=== PATIENT | male | born 1950 | race Caucasian/White ===

== ENCOUNTER 2018-01-04 14:30 | Outpatient (RCR) | payer MEDICARE, SELFPAY ==
--- NOTE | 2017-12-11 10:49 | IE_ITS ---
Date: 12/11/17 Referring: Dr. Kush Paulson Diagnosis: S/P (B) TKR 11/30/17 P.T. Diagnosis: Same SUBJECTIVE: History of Present Illness: Pt presents for rehab following (B) TKRs 11/30/17. Pt had short stay at [facility] for 3 days following his rehab. He has just returned home 2 days ago. He has been compliant with his exercises prescribed by his MD. He has been up walking around as much as he can now without his crutches. Pt reports prior hx of extensive progressive (B) knee OA for years. Pain Ratin-4 /10 on average increasing with increased activity attempt. Pain Location: (B) medial and lateral joint compartments of the knees. Prior Level of Function: Due to his extensive OA, he had poor tolerance to weightbearing activities, squatting, stair climbing and uneven terrain etc.. Current Level of Function: Even now more so limited due to acute post op condition, and inability to tolerate prolonged weightbearing activities. Struggling with ascension and dissension of stairs, significant sleep disruption and struggles to get in and out of a vehicle. He cannot drive on his own and he cannot walk long distance. He has moderate complications getting into and out of his tub, off the toilet etc.. See LEFS for specifics. Previous Treatment: [facility] x 4 days post op and no outpatient at this point. Social: He is a retired toolroom machinist and tool pusher. Comorbidities: (B) shoulder replacements and he has high blood pressure. Falls in the last year: __X__ No ____Yes - How many? ____ - (if over 2, balance SM needs to be completed) Reported hospitalizations in the last year - ____ No __X__ Yes - Dates of admission/reason: Following TKR otherwise none Medications: Tylenol PRN he has weaned himself off from his narcotics. Lisinopril. Quality of Life: __X__ Excellent Standardized Measures: LEFS score: __82% Disability__ OBJECTIVE: Posture: Unremarkable Observation: (B) LE ecchymosis more remarkable distally, LE swelling appropriate for post op condition, donning SATINDER hose below the knee. Presents with two crutches, but not utilizing them. Gait: Antalgic as expected with minimal knee mobility through all phases of gait. WBOS with short stride length, he doesn't seem to be favoring one leg over the other. He initially stands for about 10 seconds before stepping just to get his balance, before walking. He does not demonstrate good knee extension during heel strike, lacking about 10-15* B. Palpation: Is unremarkable. Edema: Present throughout (B) LEs as noted above. Girth measurements: (R) knee superior surgical incision 48cm, central knee 45 cm, 13cm below his inferior incision 37.5cm (L) knee is 48.5cm, 47cm, 40.5 cm respectively. ROM: (R) 10-103* (L) 10-105* Joint Accessory Motion: Moderately limitation with tibial femoral, hypomobile patella femoral all directions (B). Strength: 4/5 quad and hamstring, but unable to perform TKE at this point. SLR he is lacking about 10* TKE, demonstrating good quad activation with visual quad contraction. Neuro: Intact to light touch (B) LEs Balance: Poor due to post op condition, poor strength and overall swelling lack of mobility etc.. Special Tests: N/A Treatment: IE: [id number] Patient Education: HEP review: encouraging continued compliance with his current program which was appropriate. I added additional heel slides, leg elevation with ankle pumping to reduce swelling, as well as instruction in seated knee flexion activities. KX applied to all codes ____ Yes __X__ No Manual therapy: ([id number]). MLD to (B) LEs, (B) knee flexion and extension mobilizations. Nustep x 5 minutes minimally supervised. Direct treatment time: 60 minutes Total treatment time: 60 minutes ASSESSMENT: Patient is a 67 -year-old male, referred for PT services with the diagnosis of ( B) TKR. Patient presents with clinical signs and symptoms consistent with post op dx, as demonstrated by the following impairment level findings: (B) knee ROM limitations, strength deficits, lack of proprioceptive control, LE swelling and edema, ecchymosis, gait antalgia. Impairments are contributing to the following functional limitations: See current level of function and LEFS, revealing poor tolerance to weightbearing activities, sleep disruption and struggling with self care activities and unable to drive. Patient is assessed as: __X__ Low 81574 ____ Moderate 04101 ____ High 85366 complexity, based on the following: History: X See comorbidities and social history. Examination: X See above for functional limitations and impairments. Presentation: X Stable Decision-Making: X Low complexity 82 % Disability based on LEFS __X__ Patient requires skilled PT intervention to remediate the above functional limitations to return to: __X__ Return to full functional mobility Prognosis: __X__ Excellent G-Codes : Patient's primary functional limitation is in the category of: __X__ Mobility - walking and moving around : [id number] based on LEFS Projected goal: __X__ Mobility - walking and moving around: [id number] STG: __6__ weeks. 1. Minimally antalgic gait on level terrain, climbing stairs reciprocally with use of rail with mild antalgia. 2. Minimal to no sleep disruption 3. LEFS improved to 55% disability 4. Return to driving. LTG: __14__ weeks. __X__ Return to premorbid level of function. __X__ Return to full, pain-free, functional mobility. __X__ Independent with self-maintenance program. PLAN: Patient to be seen 2 x per week, for 14 weeks, adjusting frequency of visits per patient symptoms and response to treatment. Treatment to include: X Manual therapy - [id number]: For mobilization of (B) knees, MLD, soft tissue mobilizations PRN, accessory mobilizations, etc.. X Therapeutic exercise - [id number] gross LE strengthening and core stability strengthening to return to full function. X Aquatic Therapy- If he struggles for land based interventions. Pt's care will be transferred to our [facility] under the supervision of OSCAR Ybarra per his request to accommodate to his travel time. Thank you for this referral. Please do not hesitate to contact me with any questions or concerns regarding this patient's plan of care. Dr. Currie please sign below if you are in agreement with this patient's plan of care, cc: Chandra Currie, DO
--- NOTE | 2017-12-14 10:30 | PTTR_ITS ---
DATE: 12/14/17 SUBJECTIVE: Patient arrived to appointment ambulating with decreased knee flexion bilaterally and no use of AD. Patient reports he has been completing his HEP 2 times per day, using his CPM machine about 3 hours per day, and walking everyday. His incisions are both healing well with no drainage. Has follow up appointment with surgeon on ThursdayDecember 16. OBJECTIVE: Manual therapy: ([id number]). Performed grade 2 anterior tibiafemoral joint mobilizations in seated position with distraction bilaterally. Knee flexion PROM in seated position. Patellafemoral mobilizations in all directions bilaterally. Posterior tibiafemoral grade 2 joint mobilizations with tibial distraction to promote terminal knee extension. P/AAROM into knee flexion and extension. Hamstring and single knee to chest stretches bilaterally. AROM after joint mobilizations and stretching 10-110 degrees bilaterally. Patient instructed to progress CPM machine to 120 degrees of flexion. Therapeutic procedures ([id number]). [X] HEP review: Added prone hang stretch to promote total knee extension. [X] See flow sheet: Focused on bilateral knee ROM and LE strengthening. [X] Provided skilled instruction in proper exercise performance: for proper body mechanics. [X] Provided skilled manual cues to facilitate proper muscle recruitment and/or movement pattern: Cues needed to lead with heel and keep trunk in neutral position when performing standing hip abduction. Patient requires cues to bend knees and strike with heels when ambulating. Cryotherapy to bilateral knees post session x 10 minutes in supine with wedge pillow. Direct treatment time: 55 minutes Total treatment time: 65 minutes Shelly Aiken, SPT Jennie Bell, MPT
--- NOTE | 2017-12-17 15:00 | PTTR_ITS ---
DATE: December 17, 2017 SUBJECTIVE: Gregory notes that he was sore following his last treatment session. He followed up with his surgeon since he was last here and they feel that he is doing very well. He was able to get onto his [employer] [place] at home to check his [place] bushes. He notes that they said he could return to driving once he felt he had control. He has completed the prone extension stretches. He was also instructed via his PA that he could perform in seated position with use of a stool under his ankle with weights drawing the leg down into extension. He has not tried this one yet. Continues to be walking more and more. He notes that he still is not sleeping well. OBJECTIVE: Manual therapy: ([id number]).Patellofemoral joint mobilization all planes to bilateral knees. Tibiofemoral anterior glides in seated position Gr II/III bilaterally. Posterior glides in supine Gr II/III bilaterally. LE distractions provided to improved terminal knee extension. P/AAROM performed throughout all planes. Soft tissue stretching bilateral hamstring, and SKC. Post mobilization bilateral knee flexion to 110 degrees. Therapeutic procedures ([id number]). * X HEP review: Promoting knee extension stretching. Reviewed home stabilization per protocol. * X See flow sheet: Open and closed chain strength and stabilization per flow sheet. * X Provided skilled instruction in proper exercise performance: avoiding compensatory movements with focus on body mechanics and postural awareness. * X Provided skilled manual cues to facilitate proper muscle recruitment and/ or movement pattern: Ended with cryotherapy to bilateral knees for 10 minutes post with use of wedge pillow for elevation. Will continue to advance within symptom allowance progressing accordingly via protocol. Direct treatment time: 45 minutes Total treatment time: 55 minutes
--- NOTE | 2017-12-21 14:00 | PTTR_ITS ---
DATE: December 21, 2017 SUBJECTIVE: Gregory notes that he has really been working on his ROM at home. He drove himself for the first time today to his appt. He continues to be doing more and more around the house including some light vacuuming. He notes he continues to fight with his extension however does feel that he is seeing improvements. OBJECTIVE: Manual therapy: ([id number]). Patellofemoral joint mobilization all planes to bilateral knees. Tibiofemoral joint mobilization Gr II/III anterior glides in seated position and posterior glides in supine to bilateral knees. P/AAROM performed throughout all planes with focus on terminal knee extension. Soft tissue stretching to the hamstring, ITB and SKC also performed. Scar mobilization also provided. Incisions are healing well. Post mobilization right knee 10-120 degrees, left knee 5-120 degrees. Therapeutic procedures (12526d7). * X HEP review: Focusing on TKE * X See flow sheet: Open and closed chain strength and stabilization per TKR protocol. * X Provided skilled instruction in proper exercise performance: promoting body mechanics and postural awareness. * X Provided skilled manual cues to facilitate proper muscle recruitment and/ or movement pattern: Ended with cryotherapy to bilateral knees post session for 10 minutes along with wedge pillow for elevation. Direct treatment time: 60 minutes Total treatment time: 70 minutes
--- NOTE | 2017-12-24 15:11 | PTTR_ITS ---
DATE: 12/24/17 SUBJECTIVE: Vamshi states that he is still having difficulties sleeping at night. He indicates that his knees get really tired of being straight, and is unable to get comfortable. OBJECTIVE: Manual therapy: ([id number]). mobilizations of bilateral tib/fem jt including anterior and posterior glides, P /AAROM in seated and supine positions. Stretching of hamstrings, ITB and piriformis. Patella glides in all directions. LE distractions via leg pulls. He went into prone and received STM t/o posterior knee with focus on hamstrings, and gastrocs. ROM using MET's into extension along with tibial distractions. I also provided scar tissue work. Therapeutic procedures ([id number]). * x See flow sheet: for global LE strength and stabilizations. * x Provided skilled instruction in proper exercise performance: proper quad engagement. He ended with cryo to posterior and anterior aspect of knee x 10 min with elevation. Direct treatment time: 60 min Total treatment time: 70 min
--- NOTE | 2017-12-28 09:30 | PTTR_ITS ---
DATE: December 28, 2017 SUBJECTIVE: Gregory notes that he continues to be doing well. He is able to walk longer distances with less overall irritation. He feels that he is getting around his home better with less restrictions. He remains compliant with his HEP and continues to ice frequently throughout the day for swelling and pain. OBJECTIVE: Manual therapy: ([id number]).Patellofemoral joint mobilization all planes to bilateral knees. Tibiofemoral joint mobilization Gr III anterior glides in sitting and posterior glides in supine to bilateral knees. P/AAROM performed to bilateral knees with focus on end range extension mobility. Soft tissue stretching to include hamstring, ITB and SKC. This followed with scar tissue mobilization to bilateral incisions. ROM steadily improving. Therapeutic procedures ([id number]). * X See flow sheet: Open and closed chain stabilization per TKR protocol. Advanced balance acitviity per flow sheet. Encouraged engagement of the TA. * X Provided skilled instruction in proper exercise performance: promoting proper body mechanics and postural awareness * X Provided skilled manual cues to facilitate proper muscle recruitment and/ or movement pattern: promoting gait mechanics with normalized heel to toe pattern. Increased cueing utilized for the right knee with tendency to circumduct his hip vs flex his knee. Improved with cueing. Ended with cryotherapy to bilateral knees post session for 10 minutes along with wedge pillow. Direct treatment time: 60 minutes Total treatment time: 70 minutes
--- NOTE | 2017-12-31 09:30 | PTTR_ITS ---
DATE: December 31, 2017 SUBJECTIVE: Vamshi is a little discouraged today with the amount of discomfort he is having in his right knee. He continues to remain compliant with his HEP and stretches however just does not seem to get any looser. OBJECTIVE: Manual therapy: ([id number]).Patellofemoral joint mobilization all planes to bilateral knees. Tibiofemoral joint mobilization Gr II/III anterior glides in seated and posterior glides in supine. Soft tissue mobilization to the distal ITB and into the extensor mechanism bilaterally. Scar tissue mobilization then followed. P/AAROM to bilateral knees with focus on terminal knee extension. Instructed in towel stretch to bilateral knees with TKE. This seemed to provide a better stretch than the prone hangs. Will have him substitute this to promote his hamstring flexibility. Therapeutic procedures ([id number]). * X See flow sheet: Open and closed kinetic chain strength and stabilization per flow sheet. Continued to advance with use of [employer] gym for modified squats. Added resistance with hip PRE's and SSH. Continued to provide verbal and tactile cueing to ensure proper recruitment and avoidance of compensatory movement patterns. Continued verbal cues to promote proper heel to toe pattern. Ended with MHP to bilateral hamstrings with wedge pillow for elevation and cryotherapy to bilateral knees for 10 minutes. Will continue to advance within symptom allowance. Will monitor his response to the new extension stretch. Continue to encourage use of walking sticks or cane to promote improved gait mechanics. Direct treatment time: 60 minutes Total treatment time: 70 minutes
--- NOTE | 2018-01-04 14:30 | PTTR_ITS ---
DATE: January 04, 2018 SUBJECTIVE: Gregory notes that he [place] to the [place] the [place] and did quite a bit of walking with manageable symptoms. He continues to note increased soreness into the distal ITB region of the right knee. He continues to complete his daily stretches and has been working on his knee extension as much as he can tolerate. OBJECTIVE: Manual therapy: ([id number]).Patellofemoral joint mobilization all planes to bilateral knees. Tibiofemoral posterior glides in supine Gr III. Passive hamstring, ITB and SKC stretching performed bilaterally. P/AAROM performed to bilateral knees with focus on TKE. STM throughout the distal ITB region and into the extensor mechanism on the right knee. Therapeutic procedures ([id number]). * X See flow sheet: Open and closed kinetic chain strength and stabilization with continued advancement in resistance and repetitions. See flow sheet for specifics. * X Provided skilled instruction in proper exercise performance: promoting body mechanics and postural awareness. * X Provided skilled manual cues to facilitate proper muscle recruitment and/ or movement pattern: Ended with cryotherapy to bilateral knees post session along with utilization of the a wedge pillow for elevation. ROM continues to improved. Extension remains prime limiter Will continue to advance within symptom allowance progressing per protocol. Direct treatment time: 45 minutes Total treatment time: 55 minutes
--- NOTE | 2018-01-08 13:00 | PTTR_ITS ---
DATE: January 08, 2018 SUBJECTIVE: Gregory notes that he has a small pimple on his incision that popped causing some mild drainage. He reports that he put antibiotic ointment on it immediately and has been watching it for fear of infection. He continues to note improvement week by week. He remains compliant with HEP. OBJECTIVE: Upon observation of incision redness noted middle incision. No drainage is present. Will continue to monitor. Recommend he continue to monitor it as well. Feel probable internal stitch. Manual therapy: ([id number]). Patellofemoral joint mobilization all planes to bilateral knees. Tibiofemoral joint mobilization bilateral knees Gr II/III anterior glides in seated and posterior glides in supine. Soft tissue stretching to the hamstrings and SKC. Post mobilization active knee ROM 5-120 degrees bilaterally. Therapeutic procedures ([id number]). * X See flow sheet: Open and closed kinetic chain stabilization with progressive resistive training. * X Provided skilled instruction in proper exercise performance: promoting body mechanics and postural awareness. * X Provided skilled manual cues to facilitate proper muscle recruitment and/ or movement pattern: encouraging proper gait mechanics. Utilized treadmill to promote heel strike and quad set with initial contact for continued to want to keep his knees flexed. Ended with cryotherapy to bilateral knees along with wedge pillow for elevation. Continue to advance per protocol and within symptom allowance. Direct treatment time: 45 minutes Total treatment time: 55 minutes
== END 2018-01-08 23:59 | disposition home or self-care (01) ==
LOC: PT 14:30
PROVIDERS: PCP Emergency Medicine; Referring Provider Orthopaedic Surgery; Visit Provider Orthopaedic Surgery
DX: Z47.1 Aftercare following joint replacement surgery (principal); Z96.653 Presence of artificial knee joint, bilateral
CPT/HCPCS: 97110; 97140; 97161; G8978

== ENCOUNTER 2019-01-26 07:00 | Outpatient (CLI) | payer MEDICARE, SELFPAY ==
[2019-01-26 13:02] LABS: Anion Gap 11.9 mmol/L (3-11); BUN 14 mg/dL (7-18); CO2 24.1 mmol/L (21.0-32.0); Chloride 101 mmol/L (98-107); Glucose 94 mg/dL (70-100); Potassium 3.9 mmol/L (3.5-5.1); Sodium 137 mmol/L (136-145)
[2019-01-27 11:15] LABS: PSA, Screening 0.5 ng/ml (0-4.5)
== END 2019-01-26 07:20 ==
PROVIDERS: PCP Emergency Medicine; Visit Provider Emergency Medicine
DX: I10 Essential (primary) hypertension (principal); N40.0 Benign prostatic hyperplasia without lower urinary tract symptoms; Z12.5 Encounter for screening for malignant neoplasm of prostate
CPT/HCPCS: 36415; 80048; 84153

== ENCOUNTER → 2019-09-26 11:26 | Outpatient (BNVA) | payer MEDICARE, SELFPAY | PROVIDERS: PCP Emergency Medicine; Referring Provider Emergency Medicine; Visit Provider Surgery | DX: K60.2 Anal fissure, unspecified (principal) | CPT/HCPCS: 99201 ==

== ENCOUNTER 2019-11-07 01:45 | Outpatient (CLI) | payer MEDICARE, SELFPAY ==
--- NOTE | 2019-11-07 08:23 | DI.RAD_ITS ---
EXAM: XR CHEST 2V PA LATERAL CLINICAL HISTORY: fatigue confusion smoker, R53.83 TECHNIQUE: 2D digital imaging was performed. COMPARISON: No exams were available for comparison FINDINGS: MEDIASTINUM: Normal. HEART: Normal. PULMONARY VASCULATURE: Normal. LUNGS: Clear. PLEURAL SPACE: No pleural effusion or pneumothorax. BONE:Normal. OTHER FINDINGS:Bilateral shoulder replacements. IMPRESSION: No acute pulmonary findings. DATA REPOSITORY: RADIATION DOSE DELIVERED:
--- NOTE | 2019-11-07 08:32 | DI.CT_ITS ---
EXAM: CT HEAD WO CLINICAL HISTORY: fatigue and confusion, R53.83, R41.0. TECHNIQUE: Imaging Protocol: Axial computed tomography images with coronal and sagittal reformatted images were created and reviewed COMPARISON: No exams were available for comparison FINDINGS: Ventricles and Extra axial spaces: Normal in size and morphology for the patient's age. Hemorrhage: None. Cerebral parenchyma: Normal. Midline shift: None. Brainstem/Cerebellum: Normal. Calvarium: Normal. Visualized Paranasal sinuses/Mastoids: Clear. Soft Tissues: Unremarkable. IMPRESSION: No acute intracranial process. RADIATION DOSE DELIVERED: Total DLP DATA REPOSITORY: All CT scans at this facility are submitted to the National Radiology Data Registry (NRDR) Dose Index Registry (DIR) with the [employer] (ACR). RADIATION OPTIMIZATION: All CT scans at this facility use at least one of these dose optimization te chniques: automated exposure control; mA and/or kV adjustment per patient size (includes targeted exa ms where dose is matched to clinical indication); or iterative reconstruction.
== END 2019-11-07 02:05 ==
PROVIDERS: PCP Emergency Medicine; Visit Provider Emergency Medicine
DX: R41.0 Disorientation, unspecified (principal); R53.83 Other fatigue
CPT/HCPCS: 70450; 71046

== ENCOUNTER 2019-11-10 02:14 | Outpatient (CLI) | payer MEDICARE, SELFPAY ==
[2019-11-10 08:45] LABS: HCT 42.2 % (40.0-50.0); HGB 14.4 g/dL (13.5-17.5); Mean Corp. HGB Concentration 34.1 g/dL (32.0-36.0); Mean Corpuscular Hemoglobin 34.4 pg (27.0-33.0); Mean Platelet Volume 11.7 fL (8.0-11.0); Platelet Count 98 x1000/uL (130-400); RBC 4.18 m/cumm (4.50-6.00); RBC Distribution Width 12.3 % (11.8-14.1); White Blood Cell Count 5.46 k/cumm (4.4-10.8)
[2019-11-10 09:55] LABS: ALT 224 U/L (16-63); AST 174 U/L (15-37); Albumin 3.5 g/dL (3.4-5.0); Alkaline Phosphatase 59 U/L (46-116); Anion Gap 8.9 mmol/L (3-11); BUN 14 mg/dL (7-18); CO2 27.1 mmol/L (21.0-32.0); Calcium 9.4 mg/dL (8.5-10.1); Calculated LDL 133 mg/dL (<100); Chloride 100 mmol/L (98-107); Cholesterol 190 mg/dL (<200); Glucose 119 mg/dL (74-106); HDL Cholesterol 38 mg/dL (40-60); Potassium 4.2 mmol/L (3.5-5.1); Sodium 136 mmol/L (136-145); TSH 0.72 uIU/mL (0.36-3.74); Total Protein 8.1 g/dL (6.4-8.2); Triglyceride 95 mg/dL (<150)
[2019-11-10 10:13] LABS: C-Reactive Protein 0.62 mg/dL (0.0-0.3)
[2019-11-10 11:24] LABS: ESR 43 mm/hr (1-20)
== END 2019-11-10 02:34 ==
PROVIDERS: PCP Emergency Medicine; Visit Provider Emergency Medicine
DX: I10 Essential (primary) hypertension (principal); R41.0 Disorientation, unspecified; R53.83 Other fatigue; F32.9 Major depressive disorder, single episode, unspecified; E03.9 Hypothyroidism, unspecified
CPT/HCPCS: 36415; 80053; 80061; 85027; 85652; 84443; 86140

== ENCOUNTER 2020-11-19 08:20 | Outpatient (CLI) | payer MEDICARE, SELFPAY ==
[2020-11-19 12:44] LABS: ALT 139 U/L (16-63); AST 109 U/L (15-37); Albumin 3.7 g/dL (3.4-5.0); Alkaline Phosphatase 59 U/L (46-116); BUN 11 mg/dL (7-18); Bilirubin, Total 0.9 mg/dL (0.2-1.0); Chloride 102 mmol/L (98-107); GGT 138 U/L (15-85); Glucose 145 mg/dL (74-106); Sodium 138 mmol/L (136-145); Total Protein 8.1 g/dL (6.4-8.2)
[2020-11-19 12:46] LABS: Iron 91 ug/dL (65-175); Total Iron Binding Capacity 320 ug/dL (250-450); Transferrin Sat 28 % (20-55)
[2020-11-20 11:57] LABS: HBs Antibody, Qual Negative (See Note); HBs Antibody, Quant <3.1 mIU/mL (See Note); Hepatitis B Core Antibody Negative (Negative); Hepatitis B surface Ag Negative (Negative); Hepatitis C Ab w Rflx HCV PCR Negative (Negative)
== END 2020-11-19 08:21 | disposition home or self-care (01) ==
LOC: LOS 08:25
PROVIDERS: PCP Emergency Medicine; Visit Provider Emergency Medicine
DX: R94.5 Abnormal results of liver function studies (principal); F17.210 Nicotine dependence, cigarettes, uncomplicated; D22.9 Melanocytic nevi, unspecified
CPT/HCPCS: 36415; 80053; 86704; 86706; 86803; 87340; 82977; 83540; 83550

== ENCOUNTER 2021-01-07 01:08 | Outpatient (CLI) | payer MEDICARE, SELFPAY ==
--- NOTE | 2021-01-07 07:00 | DI.US_ITS ---
Exam(s) US ABDOMEN EXAM: US ABDOMEN CLINICAL HISTORY: ABNL LFT'S,R94.5 TECHNIQUE: Ultrasound abdomen performed using standard protocol. COMPARISON: No exams were available for comparison FINDINGS: ABDOMINAL AORTA AND IVC: Visualized portions normal caliber. PANCREAS: Normal where visualized. LIVER: There is diffuse increased echogenicity of the liver consistent with fatty infiltration. The liver measures 21 cm in length. Hepatopedal flow in the Portal Vein. GALLBLADDER: No evidence of cholelithiasis. No evidence of wall thickening. No pericholecystic fluid identified. BILIARY SYSTEM: Common bile duct measures < 7 mm. No intrahepatic biliary ductal dilation. VUONG'S SIGN: Negative. KIDNEYS: Kidneys are symmetric in size. No evidence of renal calculi. No evidence of hydronephrosis. No renal mass or cyst identified. SPLEEN: Not enlarged. ASCITES: None seen. IMPRESSION: Hepatomegaly and hepatic steatosis. DATA REPOSITORY:
== END 2021-01-07 01:28 ==
PROVIDERS: PCP Emergency Medicine; Visit Provider Emergency Medicine
DX: R94.5 Abnormal results of liver function studies (principal); K76.0 Fatty (change of) liver, not elsewhere classified; R16.0 Hepatomegaly, not elsewhere classified
CPT/HCPCS: 76700

== ENCOUNTER 2021-01-22 10:23 | Outpatient (REF) | payer MEDICARE, SELFPAY ==
[2021-01-22 14:50] LABS: Abs Immature Grans 0.02 10^3/uL (0.0-0.06); Absolute Basophil Count 0.07 10^3/uL (0.0-0.2); Absolute Eosinophil Count 0.14 10^3/uL (0.0-0.7); Absolute Lymphocyte Count 2.13 10^3/uL (1.2-3.4); Absolute Monocyte Count 0.72 10^3/uL (0.1-0.8); Absolute Neutrophil Count 3.48 10^3/uL (1.2-6.7); Basophils % 1.1; Eosinophils % 2.1; HGB 15.1 g/dL (13.5-17.5); Immature Grans % 0.3; Lymphocytes % 32.5; MCH 33.4 pg (27.0-33.0); MCHC 33.6 % (32.0-36.0); MCV 99.6 fL (80-95); MPV 12.9 fL (8.0-11.0); Nucleated RBC 0 %; Platelet Count 134 10^3/uL (130-400); RBC 4.52 10^6/uL (4.36-5.78); RDW 12.7 % (11.8-14.1); RDW-SD 47.1 fL; WBC 6.56 10^3/uL (4.4-10.8)
[2021-01-22 15:01] LABS: ALT 177 U/L (16-63); AST 105 U/L (15-37); Albumin 3.8 g/dL (3.4-5.0); Alkaline Phosphatase 67 U/L (46-116); Bilirubin, Direct 0.2 mg/dL (0.0-0.2); Bilirubin, Total 0.9 mg/dL (0.2-1.0); Hemoglobin A1C 5.7 % (<5.7); Total Protein 8.3 g/dL (6.4-8.2)
[2021-01-22 15:41] LABS: GGT 161 U/L (15-85); Vitamin B12 371 pg/mL (193-986)
[2021-01-23 10:34] LABS: Hepatitis C Ab w Rflx HCV PCR Negative (Negative)
== END 2021-01-22 10:24 | disposition home or self-care (01) ==
LOC: LBN 10:23
PROVIDERS: PCP Emergency Medicine; Referring Provider Nurse Practitioner Family; Visit Provider Nurse Practitioner Family
DX: R94.5 Abnormal results of liver function studies; E11.9 Type 2 diabetes mellitus without complications; M21.629 Bunionette of unspecified foot
CPT/HCPCS: 80076; 86803; 82607; 82746; 82977; 83036; 85025

== ENCOUNTER → 2021-10-25 00:07 | Outpatient (CLI) | payer MEDICARE, SELFPAY ==
--- NOTE | 2021-10-25 | DI.MRI_ITS ---
Exam(s) MR ABDOMEN WO/W EXAM: MR ABDOMEN WO/W CLINICAL HISTORY: FIBROSIS K70.2 FATTY LIVER K70.0 FU ABNL IMAGING R93.5. TECHNIQUE: Multiplanar multisequence MRI was performed. COMPARISON: No exams were available for comparison FINDINGS: MR examination the upper abdomen was performed according to the usual protocol. Examination included post contrast multiphasic imaging. Abdominal aorta is of normal diameter as visualized. No adenopathy seen. Unremarkable appearance of the spleen and pancreas. No biliary dilatation. Unremarkable appearance of the gallbladder. Incidental small right renal cyst noted. No other renal abnormality or adrenal abnormality identifie d. There is an apparent tiny left lobe hepatic cyst. There is a 9 millimeter in diameter nodule in the right hepatic lobe posteriorly at the dome of the liver, this shows enhancement consistent with blood pool on venous post contrast imaging and on delayed imaging, consistent with a small hepatic hemangi lucho. No other focal hepatic lesion seen. No significant washout identified in the lesion as describ ed. IMPRESSION: No suspicious hepatic lesion identified. Small left lobe hepatic cyst and small right lobe presumed hepatic hemangioma noted as described above. Follow up CT or MRI could be obtained in 12 months if c linically appropriate. DATA REPOSITORY:
[2021-10-25 08:15] LABS: HCT 42.1 % (40.0-50.0); HGB 14.4 g/dL (13.5-17.5); MCH 32.8 pg (27.0-33.0); MCHC 34.2 % (32.0-36.0); MCV 96 fL (80-95); MPV 12.4 fL (8.0-11.0); Platelet Count 125 10^3/uL (130-400); RBC 4.39 10^6/uL (4.36-5.78); RDW 11.5 % (11.8-14.1); WBC 6.24 10^3/uL (4.4-10.8)
[2021-10-25 08:23] LABS: ALT 54 U/L (16-63); AST 36 U/L (15-37); Albumin 3.8 g/dL (3.4-5.0); Alkaline Phosphatase 89 U/L (46-116); Anion Gap 8.7 mmol/L (3-11); BUN 16 mg/dL (7-18); Bilirubin, Total 0.5 mg/dL (0.2-1.0); CO2 27.3 mmol/L (21.0-32.0); Calcium 8.6 mg/dL (8.5-10.1); Calculated LDL 122 mg/dL (<100); Chloride 104 mmol/L (98-107); Cholesterol 200 mg/dL (<200); Glucose 103 mg/dL (74-106); HDL Cholesterol 52 mg/dL (40-60); Potassium 3.7 mmol/L (3.5-5.1); Sodium 140 mmol/L (136-145); Total Protein 8.2 g/dL (6.4-8.2); Triglyceride 134 mg/dL (<150)
[2021-10-25] MEDS: Gadoterate meglumine 20 ML SYRINGE 19 ML IVP (08:33)
== END ==
PROVIDERS: PCP Family Medicine; Visit Provider Family Medicine
DX: R93.5 Abnormal findings on diagnostic imaging of other abdominal regions, including retroperitoneum (principal); K76.89 Other specified diseases of liver; K70.0 Alcoholic fatty liver; K70.2 Alcoholic fibrosis and sclerosis of liver
CPT/HCPCS: 74183; 80053; 80061; 85027

== ENCOUNTER 2022-10-24 01:52 | Outpatient (CLI) | payer MEDICARE, SELFPAY ==
[2022-10-24 12:11] LABS: HCT 47.2 % (40.0-50.0); HGB 16.1 g/dL (13.5-17.5); MCH 33.1 pg (27.0-33.0); MCHC 34.1 % (32.0-36.0); MCV 97 fL (80-95); MPV 12.4 fL (8.0-11.0); Platelet Count 147 10^3/uL (130-400); RBC 4.87 10^6/uL (4.36-5.78); RDW 12.8 % (11.8-14.1); RDW-SD 45.8 fL; WBC 6.99 10^3/uL (4.4-10.8)
[2022-10-24 12:29] LABS: ALT 67 U/L (16-63); AST 44 U/L (15-37); Albumin 4.1 g/dL (3.4-5.0); Alkaline Phosphatase 63 U/L (46-116); Anion Gap 7.6 mmol/L (3-11); BUN 18 mg/dL (7-18); Bilirubin, Total 0.8 mg/dL (0.2-1.0); CO2 27.4 mmol/L (21.0-32.0); Calcium 9.2 mg/dL (8.5-10.1); Calculated LDL 124 mg/dL (<100); Chloride 102 mmol/L (98-107); Cholesterol 199 mg/dL (<200); Estimated GFR 81.47 (mL/min/1.73m2); Glucose 112 mg/dL (74-106); HDL Cholesterol 64 mg/dL (40-60); Potassium 3.9 mmol/L (3.5-5.1); Sodium 137 mmol/L (136-145); Total Protein 8.7 g/dL (6.4-8.2); Triglyceride 55 mg/dL (<150)
[2022-10-24 22:03] LABS: Lab Add On Test DONE
[2022-10-24 22:25] LABS: Hemoglobin A1C 5.7 % (<5.7)
[2022-10-24 22:31] LABS: PSA, Screening 1.3 ng/mL (<=4.5)
== END 2022-10-24 01:53 | disposition home or self-care (01) ==
LOC: LOS 01:52
PROVIDERS: PCP Nurse Practitioner Family; Visit Provider Family Medicine
DX: Z12.5 Encounter for screening for malignant neoplasm of prostate (principal); D69.6 Thrombocytopenia, unspecified; I10 Essential (primary) hypertension; K75.81 Nonalcoholic steatohepatitis (NASH); N40.0 Benign prostatic hyperplasia without lower urinary tract symptoms; R73.03 Prediabetes
CPT/HCPCS: 36415; 80053; 80061; 84153; 85027; 83036

== ENCOUNTER 2023-10-29 01:40 | Outpatient (CLI) | payer MEDICARE, SELFPAY ==
[2023-10-29 15:29] LABS: ALT 47 U/L (16-63); AST 34 U/L (15-37); Albumin 3.8 g/dL (3.4-5.0); Alkaline Phosphatase 57 U/L (46-116); Anion Gap 9.8 mmol/L (3-11); BUN 15 mg/dL (7-18); Bilirubin, Total 0.99 mg/dL (0.2-1.0); CO2 25.2 mmol/L (21.0-32.0); CREATININE 0.9 mg/dL (0.70-1.30); Calculated LDL 112 mg/dL (<100); Chloride 101 mmol/L (98-107); Cholesterol 194 mg/dL (<200); Estimated GFR 91.88 (mL/min/1.73m2); Glucose 98 mg/dL (74-106); HDL Cholesterol 60 mg/dL (40-60); Potassium 3.9 mmol/L (3.5-5.1); Sodium 136 mmol/L (136-145); Total Protein 8.1 g/dL (6.4-8.2); Triglyceride 113 mg/dL (<150)
[2023-10-29 15:30] LABS: Hemoglobin A1C 5.8 % (<5.7)
[2023-10-30 09:03] LABS: HIV-1/2 Ag & Ab Screen Negative (Negative)
== END 2023-10-29 01:41 | disposition home or self-care (01) ==
PROVIDERS: PCP Nurse Practitioner Family; Visit Provider Nurse Practitioner Family
DX: K75.81 Nonalcoholic steatohepatitis (NASH) (principal); I10 Essential (primary) hypertension; E78.5 Hyperlipidemia, unspecified; R73.03 Prediabetes; Z11.4 Encounter for screening for human immunodeficiency virus [HIV]
CPT/HCPCS: 36415; 80053; 80061; 87389; 83036

== ENCOUNTER → 2023-11-13 00:38 | Outpatient (CLI) | payer MEDICARE, SELFPAY ==
--- NOTE | 2023-11-13 06:45 | DI.US_ITS ---
Exam(s) US AAA SCREENING EXAM: US AAA SCREENING CLINICAL HISTORY: former smoker, fam hx of AAA, SCREENING AAA, Z13.6 COMPARISON: US US ABDOMEN from 01/07/2021 MR MR ABDOMEN WO/W from 10/25/2021 FINDINGS: There is some atherosclerotic involvement of the abdominal aorta but there is no evidence of abdomina l aortic aneurysm. Maximum diameter of the abdominal aorta is 2.2 cm, proximally. Aorta exhibits normal distal tapering. Common iliac arteries exhibit upper normal size. IMPRESSION: No evidence of abdominal aortic aneurysm. There is, however, some atherosclerotic involvement (but no dilation) DATA REPOSITORY:
== END ==
PROVIDERS: PCP Nurse Practitioner Family; Visit Provider Nurse Practitioner Family
DX: Z13.6 Encounter for screening for cardiovascular disorders (principal); Z82.49 Family history of ischemic heart disease and other diseases of the circulatory system; Z87.891 Personal history of nicotine dependence
CPT/HCPCS: 76706

== ENCOUNTER → 2024-01-28 14:53 | Outpatient (BNVA) | payer MEDICARE, SELFPAY | PROVIDERS: PCP Nurse Practitioner Family; Referring Provider Nurse Practitioner Family; Visit Provider Nurse Practitioner Adult Health | DX: G56.03 Carpal tunnel syndrome, bilateral upper limbs (principal); G56.23 Lesion of ulnar nerve, bilateral upper limbs | CPT/HCPCS: 95910; 99203 ==

== ENCOUNTER → 2024-02-11 08:26 | Outpatient (BNVA) | payer MEDICARE, SELFPAY | PROVIDERS: PCP Nurse Practitioner Family; Referring Provider Nurse Practitioner Family; Visit Provider Physical Therapy Assistant | DX: Z12.11 Encounter for screening for malignant neoplasm of colon (principal) ==

== ENCOUNTER 2024-02-26 08:20 | Day surgery (SDC) | payer MEDICARE, SELFPAY ==
--- NOTE | 2024-02-25 19:29 | PDOC.DSDIS_ITS ---
Date of service: 02/26/24 Time of Service: 10:28 Discharge Plan Disposition Patient Disposition: Home Condition: Good Discharge Details Reason For Visit: screening colonoscopy Attending Provider: Bernard Harris Primary Care Provider: Coco Washburn Home Meds and New Rx's Prescriptions: Continued ibuprofen 600 mg tablet 600 mg PO DAILY PRN (Reason: pain) Qty: 60 1RF hydrochlorothiazide 25 mg tablet 25 mg PO DAILY Qty: 90 3RF lisinopril 40 mg tablet 40 mg PO DAILY Qty: 90 3RF Discontinued bisacodyl [Dulcolax (bisacodyl)] 5 mg tablet,delayed release (DR/EC) 5 mg PO ONCE Qty: 4 0RF Rx Instructions: Take per colonoscopy instructions provided by ordering providers office polyethylene glycol 3350 17 gram/dose powder 17 g PO ONCE Qty: 238 0RF Rx Instructions: Take per colonoscopy instructions provided by ordering providers office Discharge Instructions Activity:: Activity as Tolerated Diet:: As Tolerated Discharge Orders Discharge Orders: Discharge Order (Routine); Ordered 02/25/24 Ordered By: Bernard Harris DS: Diagnosis Discharge Diagnosis (1) Encounter for screening colonoscopy: Status: Acute Asessment and Plan: In preparation for Gregory's colonoscopy, he appeared to be in atrial fibrillation. Formal twelve-lead EKG was performed. Clinically, it seems most consistent with rate controlled atrial fibrillation. I notified [facility], and he will follow-up with them. We can reschedule accordingly once his cardiac issues have been addressed
--- NOTE | 2024-02-25 19:31 | W.COLOREPORT ---
Date of service: 02/26/24 Colonoscopy Report Date of procedure: 02/26/24 Pre-op diagnosis general: screening colonoscopy Procedure: colonoscopy Surgeon: Bernard Harris Anesthesia Type: General:No Airway Complications: None Disposition: same day Indications: Gregory is a 73 year old man who needs his next screening colonoscopy Prep: Miralax/Dulcolax
[2024-02-26 08:35] VITALS: BP 135/100; PULSE 56; RESP 16; TEMP 36; O2SAT 99
[2024-02-26] MEDS: Lactated Ringers 1,000 ML 80 ML IV (08:53)
--- NOTE | 2024-02-26 09:15 | W.ANESPRE ---
General Info Date of Service Date Performed: 02/26/24 Height: 5 ft 7 in Weight: 93.1 kg Body Mass Index (BMI): 32.1 Surgical Procedure: Operation Date: 02/26/24 09:50 Proposed Procedure Side Surgeon p Dara Harris MD Meds Allergies and Home Medications Allergies Allergy/AdvReac Type Severity Reaction Status Date / Time No Known Allergies Allergy Verified 02/25/24 08:36 Home Medication ?Medication ?Instructions ?Recorded hydrochlorothiazide 25 mg tablet 25 mg PO DAILY #90 tabs 05/27/23 lisinopril 40 mg tablet 40 mg PO DAILY #90 tabs 05/27/23 ibuprofen 600 mg tablet 600 mg PO DAILY PRN pain #60 tabs 11/04/23 Current Visit Medications: Current Medications Generic Name Dose Route Start Last Admin Trade Name Freq PRN Reason Stop Dose Admin Hyoscyamine Sulfate 0.125 mg 02/25/24 19:32 Hyoscyamine 0.125 Mg Sl/Oral/Chew SL 03/26/24 19:31 DIRECTED PRN Ringer's Solution 1,000 mls @ 80 mls/hr 02/26/24 06:00 02/26/24 08:53 IV 03/26/24 23:59 80 mls/hr INFUSION HOANG Administration IV Miscellaneous Supplies 1 each 02/26/24 06:00 Iv Access IV 03/26/24 23:59 DIRECTED HOANG Ondansetron HCl 4 mg 02/25/24 19:32 Ondansetron 4 Mg/2 Ml Vial IVP 03/26/24 19:31 Q4H PRN PRN Nausea / Vomiting Sodium Chloride 0 ml 02/26/24 06:00 Normal Saline Flush 10 Ml Syr IV 03/26/24 23:59 PRN PRN Sodium Chloride 0 ml 02/26/24 06:00 Normal Saline 10 Ml Vial IJ 03/26/24 23:59 DIRECTED PRN Sterile Water 0 ml 02/26/24 06:00 Water,Injection,Sterile 10 Ml Vial IJ 03/26/24 23:59 DIRECTED PRN PFSH Active Problems Active Problems: Problem Status Onset Code Encounter for screening colonoscopy Acute Z12.11 Cubital tunnel syndrome, bilateral Acute G56.23 Bilateral carpal tunnel syndrome Acute G56.03 Essential hypertension Chronic I10 ORTEGA (nonalcoholic steatohepatitis) Chronic K75.81 Prediabetes Chronic R73.03 Hyperlipidemia Chronic E78.5 Benign prostatic hyperplasia Chronic N40.0 Numbness and tingling in both hands Chronic R20.0, R20.2 Hemorrhoids Chronic K64.9 Rosacea Chronic L71.9 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 Medical History Medical History Alcohol abuse Surgical History Surgical History History of arthroplasty of left shoulder History of arthroplasty of right shoulder S/P appendectomy 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) Status post right knee replacement (11/30/17) S/P left inguinal hernia repair (2006) H/O rectal sphincterotomy Tobacco Smoking/Tobacco Use Status: Former Tobacco Use Passive smoking exposure: Yes Second hand exposure: Yes Alcohol Alcohol Intake: current Alcohol intake frequency: a few times a month Alcohol type: beer, wine and hard liquor Substance Use Substance use: Occasionally Substance use type: marijuana Vital Signs and Lab Results Vital Signs Most Recent Vital Signs in EMR: Most Recent Vital Signs Temp Pulse Resp BP Pulse Ox 36 C L 56 L 16 135/100 H 99 02/26/24 08:35 02/26/24 08:35 02/26/24 08:35 02/26/24 08:35 02/26/24 08:35 Lab Results Blood Type / Crossmatch: No Data to Display Complete Blood Count: No Data to Display Complete Metabolic Panel: No Data to Display Liver Function Panel: No Data to Display Coagulation Panel: No Data to Display Cardiac Panel: No Data to Display Arterial Blood Gas: No Data to Display Venous Blood Gas: No Data to Display Pancreas Panel: No Data to Display Thyroid Panel: No Data to Display Infectious Disease: No Data to Display Blood Cultures: No Data to Display Toxicology Panel: No Data to Display Anesthesia Assessment and Plan Anesthesia History Personal History: No History of Anesthesia Complications Family History: No Family History of Anesthesia Complications Exercise Tolerance Exercise Tolerance: Metabolic Equivalents>4 Cardiac & Pulmonary Exam Cardiac Exam: Normal S1/S2 Heart Sounds Pulmonary Exam: Clear Bilateral Breath Sounds Implantable Cardiac Device Does patient have a Pacemaker or an ICD?: No Airway Exam Known Difficult Airway: No Mallampati Class: 2 Mouth Opening: Normal (> 3cm) Thyromental Distance: Greater than 3 cm Neck Range of Motion: Limited ROM Neck Circumference: Normal Teeth Condition: Normal Dentition ASA Classification ASA Score: ASA 3 Emergency Case?: No NPO Status NPO Status: NPO Clears >2 hours, Solids >8 hours Anesthesia Plan Resuscitation Status: Full Code Anesthesia Technique: General Anesthesia Airway Planned: Natural Airway Monitors Used: Standard Monitors Preoperative Comments:: 73 yo male for colo. Sig PMHx: HTN (HCTZ, lisinopril. checks BP at homes states Sys 130/, unsure of DBP), ORTEGA, preDM (he has not heard this before, A1c 5.8), former smoker, daily EtOH, occ cannabis. Denies major pulm, cardiac issues.
[2024-02-26 09:19] VITALS: BMI 32.1
--- NOTE | 2024-02-26 09:30 | RT.EKG_ITS ---
APPROVED REPORT Exam: Resting ECG Reason for Exam: new atrial fibrillation Patient Location: O HR:78 bpm ECG Measurements Heart Rate 78 AXIS ME 156 P 0 QRSd 98 QRS 0 QT 421 T -24 QTc 508 Conclusion Atrial fibrillation Minor nonspecific repol abnormality, diffuse leads...ST dep, T flat/neg, ant/lat/inf
[2024-02-26 09:48] VITALS: BP 142/93; PULSE 72; RESP 20; TEMP 37.1; O2SAT 99
--- NOTE | 2024-02-26 11:26 | W.ANESPOSTOP ---
Postoperative Evaluation Date, Time and Location Date Performed: 02/26/24 Time Performed: 10:10 Patient Location: Day Surgery Unit Vital Signs Most Recent Imported Vital Signs: Most Recent Vital Signs Temp Pulse Resp BP Pulse Ox 37.1 C 72 20 142/93 H 99 02/26/24 09:48 02/26/24 09:48 02/26/24 09:48 02/26/24 09:48 02/26/24 09:48 Pain Score Most Recent Pain Score: Most Recent Pain Score Pain Level 0 02/26/24 08:35 Assessment Mental Status: Awake (Alert & Oriented to Patient Baseline) Airway and Respiratory Function: Patent airway with normal (patient baseline) respiratory exam Cardiovascular Function: Hemodynamically Stable Hydration Status: Adequately Hydrated Nausea & Vomiting: No Nausea or Vomiting Pain: Pt. Denies Any Pain Peripheral Nerve Block: Patient did not receive a nerve block Teaching Patient Teaching: Advised to seek followup for the following concerns (See explanation) Concerns: New Onset Atrial Fibrillation Postoperative Comments:: Dr. Harris spoke with patient and following formal 12-lead EKG. Patient will seek follow up with [facility]. Please see Dr. Harris's discharge instructions.
== END 2024-02-26 10:27 | disposition home or self-care (01) ==
LOC: SUR 08:21
PROVIDERS: PCP Nurse Practitioner Family; Visit Provider Surgery
PROC: 0DJD8ZZ Inspection of Lower Intestinal Tract, Via Natural or Artificial Opening Endoscopic (ICD-10-PCS; CPT 45378; principal; 2024-02-26 09:45)
DX: Z12.11 Encounter for screening for malignant neoplasm of colon (principal); Z53.8 Procedure and treatment not carried out for other reasons; I10 Essential (primary) hypertension
CPT/HCPCS: 45378; 93005; 93010; J2704

== ENCOUNTER 2024-03-02 09:33 | Outpatient (CLI) | payer MEDICARE, SELFPAY ==
--- NOTE | 2024-03-02 09:30 | RT.EKG_ITS ---
APPROVED REPORT Exam: Resting ECG Reason for Exam: a-fib Patient Location: O HR:81 bpm ECG Measurements Heart Rate 81 AXIS VA [id number] P [id number] QRSd 107 QRS 17 QT 400 T 38 QTc 465 Conclusion Atrial fibrillation...V-rate 59-101, irreg A-activity Nondiagnostic ST-T abnormalities
== END 2024-03-02 09:34 | disposition home or self-care (01) ==
LOC: DI.CM 09:34
PROVIDERS: PCP Nurse Practitioner Family; Visit Provider Nurse Practitioner Family
DX: I48.91 Unspecified atrial fibrillation (principal)
CPT/HCPCS: 93010

== ENCOUNTER 2024-03-02 10:27 | Outpatient (CLI) | payer MEDICARE, SELFPAY ==
[2024-03-02 10:54] LABS: HGB 15.1 g/dL (13.5-17.5); MCHC 34.3 % (32.0-36.0); MCV 96 fL (80-95); MPV 12.2 fL (8.0-11.0); Platelet Count 137 10^3/uL (130-400); RBC 4.57 10^6/uL (4.36-5.78); RDW 12.3 % (11.8-14.1); RDW-SD 43.7 fL; WBC 6.21 10^3/uL (4.4-10.8)
[2024-03-02 11:16] LABS: Anion Gap 7.7 mmol/L (3-11); BUN 22 mg/dL (7-18); CO2 29.3 mmol/L (21.0-32.0); CREATININE 1.1 mg/dL (0.70-1.30); Calcium 9.5 mg/dL (8.5-10.1); Chloride 103 mmol/L (98-107); Estimated GFR 71.77 (mL/min/1.73m2); Glucose 109 mg/dL (74-106); Potassium 3.9 mmol/L (3.5-5.1); Sodium 140 mmol/L (136-145)
[2024-03-02 11:47] LABS: D-Dimer 547 ng/mlFEU (<500)
[2024-03-02 16:53] LABS: Ferritin 293 ng/mL (26-388); TSH 0.72 uIU/mL (0.36-3.74); Vitamin B12 277 pg/mL (193-986)
== END 2024-03-02 10:28 | disposition home or self-care (01) ==
LOC: LBO 10:27
PROVIDERS: PCP Nurse Practitioner Family; Visit Provider Nurse Practitioner Family
DX: D64.9 Anemia, unspecified (principal); R20.0 Anesthesia of skin; R20.2 Paresthesia of skin; I48.91 Unspecified atrial fibrillation
CPT/HCPCS: 36415; 80048; 85027; 82607; 82728; 84439; 84443; 85379

== ENCOUNTER 2024-03-25 00:21 | Outpatient (CLI) | payer MEDICARE, SELFPAY ==
--- NOTE | 2024-03-25 08:30 | DI.US_ITS ---
APPROVED REPORT EXAM: Comprehensive 2D, Doppler, and color-flow Echocardiogram Patient Location: Out-Patient Roof Slater: Madhu Larson RDCS (AE) Indications: Need EF, afib Conclusion Normal left ventricular wall thickness and chamber size. Ejection fraction is 60 to 65%. Wall motio n is normal Normal right ventricular size and function Both atria are mildly enlarged Aortic valve is sclerotic and probably trileaflet without stenosis or regurgitation Normal mitral valve with mild regurgitation Ascending aorta measures 3.7 cm Wall motion Left Ventricle The left ventricle is normal size. The left ventricular systolic function is normal. The left ventric ular ejection fraction is within the normal range. There is normal left ventricular wall thickness. T here is normal LV segmental wall motion. There is no ventricular septal defect visualized. LVEF is 60 -65%. Right Ventricle The right ventricle is normal size. The right ventricular systolic function is normal. Atria Left atrium is mildly dilated. Right atrium is mildly dilated. The interatrial septum is intact with no evidence for an atrial septal defect. Aortic Valve Aortic valve is mildly sclerotic Aortic valve is probably trileaflet There is no aortic valvular sten osis. No aortic regurgitation is present. Mitral Valve The mitral valve is normal in structure. No evidence of mitral valve stenosis. Mild mitral regurgitat ion. Tricuspid Valve The tricuspid valve is normal in structure. There is no tricuspid valve stenosis. Trace tricuspid reg urgitation. Unable to assess PA pressure. Pulmonic Valve The pulmonary valve is normal in structure. There is no pulmonic valvular stenosis. Trace pulmonic re gurgitation. Great Vessels The aortic root is normal in size. The ascending aorta is mildly dilated. Aortic arch is not well vis ualized. IVC is normal in size and collapses >50% with inspiration. Pericardium There is no pericardial effusion. 2D Dimensions IVSD d PLAX 0.91 cm M: 0.6-1.2 Ao Root d 3.55 cm M: 3.1 - 3.7 LVPW d PLAX 0.88 cm M: 0.6 - 1.2 Ao Asc Diam d 3.70 cm M: 2.6 - 3.4 LVID d PLAX 5.44 cm M: 4.2 - 5.8 LVDs 3.65 cm M: 2.5 - 4.0 LV EF Teichholz 60.9 % FS 32.97 % LV EDV (Teich) 143.9 mL LV ESV (Teich) 56.2 mL Stroke Vol Index (Teich) 42.35 M-Mode TAPSE 1.79 cm (M/F) >1.7 Auto EF LV EDV A4C 173.3 mL LV EDV A2C 134.3 mL LV EDV BP 158.0 mL LV ESV A4C 70.0 mL LV ESV A2C 51.6 mL LV ESV BP 61.5 mL LVEF(%) A4C 59.6 % LVEF(%) A2C 61.6 % LVEF(%) BP 61.1 % LV SV A4C 103.3 ml LV SV A2C 82.7 ml LV SV BP 96.5 ml LV CO A4C 6.9 L/min LV CO A2C 6.5 L/min LV CO BP 6.7 L/min HR A4C 66.92 BPM HR A2C 78.95 BPM LV EDV Index (BP) LA Volume LA Length A4C 5.5 cm LA Length A2C 5.8 cm LA Area A4C s 20.44 cm2 LA Area A2C s 22.59 cm2 LA Vol A4C A-L 64.94 mL LA Vol A2C A-L 74.16 mL LA Vol Biplane A-L 71.8 mL LA Vol/BSA A4C A-L LA Vol/BSA A2C A-L LA Vol/BSA BP A-L 34.7 mL/m2 LA Vol A4C MOD 59.6 mL LA Vol A2C MOD 66.4 mL LA Vol BP MOD 65.0 mL RA Volume RA Area A4C 19.2 cm2 RA ESV A4C (A-L) 48.4mL RA Vol/BSA A4C A-L RA Length A4C 6.5 cm RA ESV A4C (MOD) 47.0mL LV Diastology MV E' medial 0.127 (>0.07 m/s) MV E' lateral 0.139 (>0.1 m/s) Aortic Valve AoV Vmax 1.09 m/s LVOT Vmax 0.94 m/s AoV Peak Grad 4.8 mmHg LVOT Peak Grad 3.5 mmHg AoV Area (Vmax) 3.05 cm2 LVOT VTI 0.179 m AoV VTI 0.196 m LVOT Mean Grad 1.7 mmHg AoV Mean Neal. 0.71 m/s LVOT SV 63.45 mL AoV Mean Grad 2.4 mmHg LVOT Diam s 2.10 cm AoV Area (VTI) 3.24 cm2 AV Regurg Peak Gr. 4.78 mmHg Velocity Ratio 0.86 Mitral Valve MV Vmax TIPS 0.94 m/s MV Mean Grad 1.6 (<2mmHg) MV VTI 0.200 m Pulmonary Valve PV Vmax 0.86 (0.5-1.5 m/s) RVOT Vmax 0.76 m/s PV Peak Grad 3.0 mmHg RVOT Peak Gr. 2.3 mmHg PV Mean Neal 0.57 m/s RVOT VTI 0.122 m PV Mean Grad 1.5 mmHg RVOT Mean Gr. 1.2 mmHg
== END 2024-03-25 00:41 ==
LOC: DI 00:22
PROVIDERS: PCP Nurse Practitioner Family; Visit Provider Nurse Practitioner Family
DX: I48.91 Unspecified atrial fibrillation (principal)
CPT/HCPCS: 93306

== ENCOUNTER → 2024-12-21 08:13 | Outpatient (BNVA) | payer MEDICARE, SELFPAY | PROVIDERS: PCP Nurse Practitioner Family; Referring Provider Nurse Practitioner Family; Visit Provider Surgery | DX: Z12.11 Encounter for screening for malignant neoplasm of colon (principal); Z86.0101 Personal history of adenomatous and serrated colon polyps; I48.91 Unspecified atrial fibrillation; Z79.01 Long term (current) use of anticoagulants | CPT/HCPCS: S0285 ==

== ENCOUNTER 2025-01-05 11:24 | Day surgery (SDC) | payer MEDICARE, SELFPAY ==
--- NOTE | 2025-01-05 11:22 | ANES.PREOP_ITS ---
General Info Date of Service Date Performed: 01/05/25 Height: 5 ft 7.5 in Weight: 95.254 kg Body Mass Index (BMI): 32.3 Surgical Procedure: Operation Date: 01/05/25 12:35 Proposed Procedure Side Surgeon p Colonoscopy Cristina Akers MD Meds Allergies and Home Medications Allergies Allergy/AdvReac Type Severity Reaction Status Date / Time No Known Allergies Allergy Verified 01/05/25 11:34 Home Medication ?Medication ?Instructions ?Recorded hydrochlorothiazide 25 mg tablet 25 mg PO DAILY #90 ta bs 11/21/24 lisinopril 40 mg tablet 40 mg PO DAILY #90 tabs 11/08 09/02 bisacodyl 5 mg tablet,delayed 5 mg PO ONCE colonscopy bowel prep 12/21/24 release (Dulcolax (bisacodyl)) #4 tabs polyethylene glycol 3350 17 238 g PO ONCE colonoscopy prep 12/21/24 gram/dose oral powder #238 grams apixaban 5 mg tablet (Eliquis) 5 mg PO BID #180 tabs 0 12/28/24 Current Visit Medications: Current Medications Generic Name Dose Route Start Last Admin Trade Name Freq PRN Reason Stop Dose Admin Ringer's Solution 1,000 mls @ 80 mls/hr 01/05/25 06:00 IV 01/05/25 23:59 INFUSION HOANG IV Miscellaneous Supplies 1 each 01/05/25 06:00 Iv Access IV 01/05/25 23:59 DIRECTED HOANG Sodium Biphosphate/Sodium Phosphate 133 ml 01/05/25 06:00 Na Phosphate Enema-Adult 133 Ml Btl KS 01/05/25 23:59 DIRECTED PRN Sodium Chloride 0 ml 01/05/25 06:00 Normal Saline Flush 10 Ml Syr IV 01/05/25 23:59 PRN PRN Sodium Chloride 0 ml 01/05/25 06:00 Normal Saline 10 Ml Vial IJ 01/05/25 23:59 DIRECTED PRN Sterile Water 0 ml 01/05/25 06:00 Water,Injection,Sterile 10 Ml Vial IJ 01/05/25 23:59 DIRECTED PRN PFSH Active Problems Active Problems: Problem Status Onset Code Encounter for colonoscopy due to history of adenomatous colonic polyps Acute Z12.11, Z86.0101 Macrocytosis Acute D75.89 Atrial fibrillation Chronic I48.91 Encounter for screening colonoscopy Acute Z12.11 Cubital tunnel syndrome, bilateral Acute G56.23 Bilateral carpal tunnel syndrome Acute G56.03 Essential hypertension Chronic I10 ORTEGA (nonalcoholic steatohepatitis) Chronic K75.81 Prediabetes Chronic R73.03 Hyperlipidemia Chronic E78.5 Benign prostatic hyperplasia Chronic N40.0 Numbness and tingling in both hands Chronic R20.0, R20.2 Hemorrhoids Chronic K64.9 Rosacea Chronic L71.9 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 Medical History Medical History Alcohol abuse Surgical History Surgical History History of arthroplasty of left shoulder History of arthroplasty of right shoulder S/P appendectomy 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) Status post right knee replacement (11/30/17) S/P left inguinal hernia repair (2006) H/O rectal sphincterotomy Tobacco Smoking/Tobacco Use Status: Former Tobacco Use Passive smoking exposure: Yes Second hand exposure: Yes Alcohol Alcohol Intake: former Substance Use Substance use: Occasionally Substance use type: marijuana Details: marijuana once a week Vital Signs and Lab Results Vital Signs Most Recent Vital Signs in EMR: Temp Pulse Resp BP Pulse Ox 36.5 C 78 18 158/97 H 98 01/05/25 11:35 01/05/25 11:35 01/05/25 11:35 01/05/25 11:35 01/05/25 11:35 Imaging and Studies Imaging and Studies Study information below may be from another EMR and interpreted by another provider. Please see original notes in EMR for more complete details. EKG Summary: 03/03:Conclusion Atrial fibrillation...V-rate 59-101, irreg A-activity Nondiagnostic ST-T abnormalities Echocardiogram Summary: 04/03:Conclusion Normal left ventricular wall thickness and chamber size. Ejection fraction is 60 to 65%. Wall motion is normal Normal right ventricular size and function Both atria are mildly enlarged Aortic valve is sclerotic and probably trileaflet without stenosis or regurgitation Normal mitral valve with mild regurgitation Ascending aorta measures 3.7 cm Anesthesia Assessment and Plan Anesthesia History Personal History: No History of Anesthesia Complications Family History: No Family History of Anesthesia Complications Exercise Tolerance Exercise Tolerance: Metabolic Equivalents>4 Pertinent Negatives Pertinent Negatives: No Symptoms of GERD Cardiac & Pulmonary Exam Cardiac Exam: Normal S1/S2 Heart Sounds Pulmonary Exam: Clear Bilateral Breath Sounds Implantable Cardiac Device Does patient have a Pacemaker or an ICD?: No Airway Exam Known Difficult Airway: No Mallampati Class: 2 Mouth Opening: Normal (> 3cm) Thyromental Distance: Greater than 3 cm Neck Range of Motion: Limited ROM Neck Circumference: Normal Teeth Condition: Normal Dentition ASA Classification ASA Score: ASA 3 Emergency Case?: No NPO Status NPO Status: NPO Clears >2 hours, Solids >8 hours Anesthesia Plan Resuscitation Status: Full Code Anesthesia Technique: General Anesthesia Airway Planned: Natural Airway Monitors Used: Standard Monitors
[2025-01-05 11:35] VITALS: BP 158/97; PULSE 78; RESP 18; TEMP 36.5; O2SAT 98
[2025-01-05] MEDS: Lactated Ringers 1,000 ML 80 ML IV (11:53)
--- NOTE | 2025-01-05 11:54 | W.PM.DSUDISC ---
Date of service: 01/05/25 Discharge Plan Disposition Patient Disposition: Home Discharge Details Attending Provider: Cristina Akers Primary Care Provider: Yoni Rodriguez Recommendations for Follow Up Recommended tests to be ordered by follow up provider: Next colonoscopy due in 5 years Home Meds and New Rx's Prescriptions: Continued hydrochlorothiazide 25 mg tablet 25 mg PO DAILY Qty: 90 3RF lisinopril 40 mg tablet 40 mg PO DAILY Qty: 90 3RF Eliquis 5 mg tablet 5 mg PO BID Qty: 180 4RF Discontinued bisacodyl [Dulcolax (bisacodyl)] 5 mg tablet,delayed release (DR/EC) 5 mg PO ONCE Qty: 4 0RF Rx Instructions: take per colonoscopy instructions polyethylene glycol 3350 17 gram/dose powder 238 g PO ONCE Qty: 238 0RF Rx Instructions: take per colonoscopy instructions Discharge Instructions Additional Instructions: Normal colonoscopy, zero polyps. Next colonoscopy due in 5 years. If normal again, can return to regular screening pool. Stand Alone Forms: Anesthesia Discharge Inst., Colonoscopy Post Instructions, Rachelle Lind ([facility]) Activity:: Activity as Tolerated Diet:: As Tolerated Discharge Orders Discharge Orders: Discharge Order (Routine); Ordered 01/05/25 Ordered By: Cristina Akers DS: Diagnosis Discharge Diagnosis (1) Encounter for colonoscopy due to history of adenomatous colonic polyps: Status: Acute
[2025-01-05 11:56] VITALS: BMI 32.3
--- NOTE | 2025-01-05 12:02 | COLE_ITS ---
Date of service: 01/05/25 Time of Service: 12:26 Colonoscopy Report Pre-op diagnosis general: History of adenomatous polyps Post-op diagnosis procedure note: same Procedure: Colonoscopy Surgeon: Cristina Akers Anesthesia Type: General:No Airway Estimated blood loss (mL): 0 Pathology: none sent Complications: None Disposition: same day Prep: Miralax/Dulcolax (good) Procedure Description: Informed consent was obtained and the patient was taken to the procedure area. The patient was placed in left lateral decubitus position on the procedure table. Timeout was performed. Anesthesia was induced. A lubricated colonoscop e was inserted through the anus and passed to the cecum. The cecum was identified by the ileocecal valve and the appendiceal orifice. The scope was then slowly withdrawn and the colonic and rectal mucosa examined. There are no colon or rectal mass lesions, polyps, AVMs. There is no inflammatory change. No diverticulosis was seen. The scope was retroflexed in the anorectal junction examined. Uncomplicated internal hemorrhoids present. Assessment and plan; Normal colonoscopy, zero polyps. Next colonoscopy will be due in 5 years due to previous adenomatous polyps. If normal again, he can return to regular screening pool.
[2025-01-05 12:28] VITALS: BP 101/73; PULSE 84; RESP 18; TEMP 36.5; O2SAT 93
[2025-01-05 12:56] VITALS: BP 116/90; PULSE 75; RESP 14; TEMP 36.5; O2SAT 96
--- NOTE | 2025-01-05 13:10 | W.ANESPOSTOP ---
Postoperative Evaluation Date, Time and Location Date Performed: 01/05/25 Time Performed: 13:10 Patient Location: Day Surgery Unit Vital Signs Most Recent Imported Vital Signs: Most Recent Vital Signs Temp Pulse Resp BP Pulse Ox 36.5 C 75 14 116/90 96 01/05/25 12:56 01/05/25 12:56 01/05/25 12:56 01/05/25 12:56 01/05/25 12:56 Pain Score Most Recent Pain Score: Most Recent Pain Score Pain Level 0 01/05/25 12:56 Assessment Mental Status: Awake (Alert & Oriented to Patient Baseline) Airway and Respiratory Function: Patent airway with normal (patient baseline) respiratory exam Cardiovascular Function: Hemodynamically Stable Hydration Status: Adequately Hydrated Nausea & Vomiting: No Nausea or Vomiting Pain: Pt. Denies Any Pain Peripheral Nerve Block: Patient did not receive a nerve block
== END 2025-01-05 13:24 | disposition home or self-care (01) ==
LOC: SUR 11:25
PROVIDERS: PCP Nurse Practitioner Family; Visit Provider Surgery
PROC: 0DJD8ZZ Inspection of Lower Intestinal Tract, Via Natural or Artificial Opening Endoscopic (ICD-10-PCS; CPT 45378; principal; 2025-01-05 12:30)
DX: Z12.11 Encounter for screening for malignant neoplasm of colon (principal); Z86.0101 Personal history of adenomatous and serrated colon polyps
CPT/HCPCS: G0105; J2704

== ENCOUNTER 2025-01-20 03:51 | Outpatient (CLI) | payer MEDICARE, SELFPAY ==
--- NOTE | 2025-01-20 14:30 | DI.US_ITS ---
APPROVED REPORT EXAM: Comprehensive 2D, Doppler, and color-flow Echocardiogram Patient Location: Out-Patient [employer] Teacher: Madhu Larson RDCS (AE) Indications: Persistent afib Other Information Study Quality: Adequate Conclusion Normal left ventricular wall thickness and chamber size. Ejection fraction is 55 to 60%. Wall motion is normal Normal right ventricular size and function Both atria are moderately enlarged There are no structural valvular abnormalities Mild mitral regurgitation Dilated ascending aorta measuring 3.94 cm Wall motion Left Ventricle The left ventricle is normal size. The left ventricular systolic function is normal. The left ventricular ejection fraction is within the normal range. There is normal left ventricular wall thickness. There is normal LV segmental wall motion. There is no ventricular septal defect visualized. LVEF is 55-60%. Right Ventricle The right ventricle is normal size. The right ventricular systolic function is normal. Atria Left atrium is moderately dilated. Right atrium is moderately dilated. The interatrial septum is intact with no evidence for an atrial septal defect. Aortic Valve The aortic valve is normal in structure. Aortic valve is trileaflet. There is no aortic valvular stenosis. No aortic regurgitation is present. Mitral Valve The mitral valve is normal in structure. No evidence of mitral valve stenosis. Mild mitral regurgitation. Tricuspid Valve The tricuspid valve is normal in structure. There is no tricuspid valve stenosis. Trace tricuspid regurgitation. Pulmonic Valve The pulmonary valve is normal in structure. There is no pulmonic valvular stenosis. Mild pulmonic regurgitation. Great Vessels The aortic root is normal in size. The ascending aorta is moderately dilated. Aortic arch is normal in caliber. IVC is normal in size and collapses >50% with inspiration. Pericardium There is no pericardial effusion. 2D Dimensions IVSD d PLAX 1.01 cm M: 0.6-1.2 Ao Root d 3.53 cm M: 3.1 - 3.7 LVPW d PLAX 0.99 cm M: 0.6 - 1.2 Ao Asc Diam d 3.94 cm M: 2.6 - 3.4 LVID d PLAX 5.09 cm M: 4.2 - 5.8 LVDs 3.46 cm M: 2.5 - 4.0 LV EF Teichholz 59.8 % FS 31.98 % LV EDV (Teich) 123.4 mL LV ESV (Teich) 49.6 mL Stroke Vol Index (Teich) 35.83 M-Mode TAPSE 1.71 cm (M/F) >1.7 Auto EF LV EDV A4C 117.3 mL LV EDV A2C 105.9 mL LV EDV BP 113.2 mL LV ESV A4C 53.3 mL LV ESV A2C 47.8 mL LV ESV BP 50.1 mL LVEF(%) A4C 54.6 % LVEF(%) A2C 54.9 % LVEF(%) BP 55.8 % LV SV A4C 64.0 ml LV SV A2C 58.1 ml LV SV BP 63.2 ml LV CO A4C 4.6 L/min LV CO A2C 4.6 L/min LV CO BP 4.6 L/min HR A4C 72.43 BPM HR A2C 78.44 BPM LV EDV Index (BP) LA Volume LA Length A4C 6.5 cm LA Length A2C 6.7 cm LA Area A4C s 24.74 cm2 LA Area A2C s 25.00 cm2 LA Vol A4C A-L 79.79 mL LA Vol A2C A-L 79.73 mL LA Vol Biplane A-L 80.6 mL LA Vol/BSA A4C A-L LA Vol/BSA A2C A-L LA Vol/BSA BP A-L 39.1 mL/m2 LA Vol A4C MOD 75.2 mL LA Vol A2C MOD 75.9 mL LA Vol BP MOD 75.8 mL RA Volume RA Area A4C 12.5 cm2 RA ESV A4C (A-L) 27.6mL RA Vol/BSA A4C A-L RA Length A4C 4.8 cm RA ESV A4C (MOD) 27.0mL LV Diastology MV E' medial 0.116 (>0.07 m/s) MV E Vmax 0.96 (0.4-1.3 m/s) MV E' lateral 0.170 (>0.1 m/s) Aortic Valve AoV Vmax 1.03 m/s LVOT Vmax 0.83 m/s AoV Peak Grad 4.2 mmHg LVOT Peak Grad 2.8 mmHg AoV Area (Vmax) 2.51 cm2 LVOT VTI 0.164 m AoV VTI 0.176 m LVOT Mean Grad 1.4 mmHg AoV Mean Neal. 0.66 m/s LVOT SV 50.73 mL AoV Mean Grad 2.1 mmHg LVOT Diam s 1.95 cm AoV Area (VTI) 2.89 cm2 AV Regurg Peak Gr. 4.21 mmHg Velocity Ratio 0.81 Pulmonary Valve PV Vmax 0.82 (0.5-1.5 m/s) RVOT Vmax 0.44 m/s PV Peak Grad 2.7 mmHg RVOT Peak Gr. 0.8 mmHg PV Mean Neal 0.60 m/s RVOT VTI 0.074 m PV Mean Grad 1.6 mmHg RVOT Mean Gr. 0.5 mmHg
== END 2025-01-20 04:11 ==
LOC: DI 03:52
PROVIDERS: PCP Nurse Practitioner Family; Visit Provider Internal Medicine Cardiovascular Disease
DX: I48.11 Longstanding persistent atrial fibrillation (principal)
CPT/HCPCS: 93306